=== PATIENT | male | born 1970 | race Caucasian/White ===

== ENCOUNTER → 2017-04-17 | Outpatient (CLI) | payer OTHER ==
--- NOTE | 2017-04-17 13:30 | CT ---
EXAMINATION TYPE: CT abdomen pelvis w con DATE OF EXAM: 04/17/2017 COMPARISON: NONE HISTORY: Incisional hernia CT DLP: 940 mGycm Automated exposure control for dose reduction was used. CONTRAST: CT scan of the abdomen pelvis is performed with IV Contrast, patient injected with 100 ml mL of Omnip aque 300. FINDINGS- LUNG BASES-3 mm nodule in the left lower lobe. LIVER/GB-previous cholecystectomy noted.. PANCREAS- No gross abnormality is seen. SPLEEN- No gross abnormality is seen. ADRENALS- No gross abnormality is seen. KIDNEYS/BLADDER- no hydronephrosis nephrolithiasis or renal mass. BOWEL- no bowel dilatation. Extensive retained fecal debris throughout the colon. LYMPH NODES- No greater than 1cm abdominal or pelvic lymph nodes are appreciated. OSSEOUS STRUCTURES- No significant abnormality is seen. OTHER- small periumbilical hernia containing peritoneal fat only. Prostate gland is enlarged. IMPRESSION- 1. 3 mm left lower lobe nodules too small to characterize recommend 6 month follow-up. 2. No acute process.
== END ==
LOC: RADCTMAIN 12:20
PROVIDERS: ATTEND Surgery
DX: K43.2 Incisional hernia without obstruction or gangrene (principal)
CPT/HCPCS: 74177; Q9967

== ENCOUNTER → 2019-02-04 | Outpatient (CLI) | payer OTHER ==
--- NOTE | 2019-02-05 20:47 | CT ---
EXAMINATION TYPE: CT chest wo con DATE OF EXAM: 02/04/2019 COMPARISON: None HISTORY: Pulmonary nodule CT DLP: 475 mGycm, Automated exposure control for dose reduction was used. CONTRAST: Performed injected with 0 mL of Isovue 300. TECHNIQUE: Axial images were obtained at 5 mm thick sections. Reconstructed images are reviewed on [employer] computer in the coronal plane. FINDINGS: Portion of the thyroid visualized is normal. No suspicious lung nodules or focal infiltrates are present. Left lower lobe nodule measures 0.4 cm o n the current study. Series 4 image 44 is nonspecific. Follow-up exam in 6 months is recommended. No enlarged mediastinal or hilar adenopathy is evident. The ascending aorta diameter at the level of the main pulmonary artery is 2.9 cm. The main pulmonary artery diameter at the bifurcation is 2.[address] sections are obtained through the upper abdomen. Abdomen is essentially unremarkable. IMPRESSIONS: 1. Solitary 4 mm nodule left lower lobe. Follow-up in 6 months is recommended.
== END | disposition home or self-care (01) ==
LOC: RADCTMAIN 16:33
PROVIDERS: ATTEND Family Medicine
DX: R91.1 Solitary pulmonary nodule (principal)
CPT/HCPCS: 71250

== ENCOUNTER → 2019-09-09 | Outpatient (CLI) | payer OTHER ==
--- NOTE | 2019-09-09 12:33 | CT ---
EXAMINATION TYPE: CT chest wo con DATE OF EXAM: 09/09/2019 COMPARISON: 02/04/2019 HISTORY: follow up solitary pulmonary nodule CT DLP: 249.6 mGycm, Automated exposure control for dose reduction was used. CONTRAST: None TECHNIQUE: Axial images were obtained at 5 mm thick sections. Reconstructed images are reviewed on [employer] computer in the coronal plane. FINDINGS: Portion of the thyroid visualized is normal. No suspicious lung nodules or focal infiltrates are present. There is some vague pneumonitis type johnna nge within the posterior left midlung. Example image series 4 image 35. Short-term follow-up is recom mended in 6 months. The 0.4 cm nodule in the periphery of the left lower lung field, series 4 image 46, stable from [facility] rison. This should be confirmed as stable over the course of 2 years. No enlarged mediastinal or hilar adenopathy is evident. The ascending aorta diameter at the level o f the main pulmonary artery is 2.9 cm. The main pulmonary artery diameter at the bifurcation is 2.[address] sections are obtained through the upper abdomen. Abdomen is essentially unremarkable. IMPRESSIONS: 1. Vague pneumonitis change within the posterior left lung is nonspecific. Recommend short-term follo w-up in 6 months to reevaluate this finding. 2. Stable 4 mm nodule periphery left lateral lower lobe 3. CT chest is otherwise unremarkable
== END | disposition home or self-care (01) ==
LOC: RADCTMAIN 11:10
PROVIDERS: ATTEND Internal Medicine Sleep Medicine
DX: R91.1 Solitary pulmonary nodule (principal)
CPT/HCPCS: 71250